=== PATIENT | male | born 1975 | race Caucasian/White ===

== ENCOUNTER 2018-02-20 10:32 | Emergency (ER) | payer BC, OTHER ==
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
[2018-02-20] MEDS ORDERED: XYLOCAINE 2% HCL 20 ML MDV ONE (10:44)
[2018-02-20] MEDS ORDERED: XYLOCAINE 2% HCL 20 ML MDV IJ ONE (10:46)
[2018-02-20] MEDS ORDERED: Norco 10/325 MG Tablet PO ONE (10:59)
[2018-02-20] MEDS ORDERED: Norco 10/325 MG Tablet ONE (11:11)
[2018-02-20 11:41] VITALS: O2SAT 98
[2018-02-20 11:46] VITALS: BP 147/74; PULSE 86
--- NOTE | 2018-02-23 16:32 | XRAY ---
Indication: Laceration. Comparison: None 3 views of the right hand obtained. No bony, articular, or soft tissue abnormalities.
== END 2018-02-20 11:50 | disposition home or self-care (01) ==
LOC: ED 10:32
PROC: 0HQFXZZ Repair Right Hand Skin, External Approach (ICD-10-PCS; principal; 2018-02-20)
PROC: 0H9FXZZ Drainage of Right Hand Skin, External Approach (ICD-10-PCS; 2018-02-20)
DX: S61.011A Laceration without foreign body of right thumb without damage to nail, initial encounter (principal); S61.210A Laceration without foreign body of right index finger without damage to nail, initial encounter; W22.8XXA Striking against or struck by other objects, initial encounter; Y93.9 Activity, unspecified
CPT/HCPCS: 10140; 12001; 73130; 96372; 99284; A9270-GY

== ENCOUNTER 2018-03-06 11:12 | Emergency (ER) | payer OTHER ==
[2018-03-06 11:22] VITALS: BP 142/85; PULSE 80; O2SAT 100
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
== END 2018-03-06 12:25 | disposition home or self-care (01) ==
LOC: ED 11:12
DX: Z48.02 Encounter for removal of sutures (principal)
CPT/HCPCS: 99283

== ENCOUNTER 2018-06-05 14:19 | Emergency (ER) | payer MEDICAID, OTHER ==
[2018-06-05] MEDS ORDERED: Sodium Chloride 0.9% 1000 ML 1,000 ML IV STA ×2 (14:42→15:58)
[2018-06-05] MEDS ORDERED: BENADRYL 50 MG/ML IV ONE (14:42)
[2018-06-05] MEDS ORDERED: Phenergan 25 MG INJ IM ONE (14:42)
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
[2018-06-05] MEDS ORDERED: Phenergan 25 MG INJ ONE (14:56)
[2018-06-05] MEDS ORDERED: BENADRYL 50 MG/ML ONE (14:56)
[2018-06-05] MEDS ORDERED: Sodium Chloride 0.9% 1000 ML 1,000 ML ONE ×2 (14:57→16:14)
[2018-06-05 15:14] LABS: Hematocrit 45.1 % (42-50); Mean Cell Volume 102.3 fl (78-100); Mean Corpuscular Hgb Concent. 33.3 g/dl (32-36); Mean Platelet Volume 9.8 fl (6-9.5); Platelet Count 147 K/mm3 (150-450); Red Blood Count 4.41 M/mm3 (4.1-5.6); Red Cell Distribution Width 12.7 % (11.5-14.0); White Blood Count 13.1 K/mm3 (4.0-10.5)
[2018-06-05 15:16] LABS: Appearance CLEAR (CLEAR); Bilirubin NEGATIVE (NEGATIVE); Blood NEGATIVE Ery/ul (0-5); Glucose NEGATIVE (NEGATIVE); Ketones NEGATIVE (NEGATIVE); Leukocyte Esterase NEGATIVE (NEGATIVE); Mucus SLIGHT /HPF (NEGATIVE); Nitrite NEGATIVE (NEGATIVE); Protein,Urine Dip NEGATIVE (Negative); Specific Gravity 1.024 (1.005-1.025); Urobilinogen 2 mg/dL (0-1)
[2018-06-05 15:18] LABS: Bacteria NONE SEEN /HPF (NEGATIVE); RBC NONE SEEN /HPF (0-2); WBC NONE SEEN /HPF (0-5)
[2018-06-05 15:26] LABS: ALBUMIN 3.5 g/dL (3.5-5.0); ALKALINE PHOSPHATASE 65 U/L (38-126); AMYLASE 74 U/L (30-110); ANION GAP 10.9 MEQ/L (5-15); BLOOD UREA NITROGEN 20 mg/dL (9-20); CHLORIDE 109 mmol/L (98-107); Calcium 7.9 mg/dL (8.4-10.2); Carbon Dioxide 23 mmol/L (22-30); Creatinine 1 0.72 mg/dL (0.66-1.25); Glucose 101 mg/dL (74-106); LIPASE 79 U/L (23-300); Potassium 4.3 mmol/L (3.5-5.1); SGOT/AST 56 U/L (17-59); SGPT/ALT 81 U/L (0-50); SODIUM 138 mmol/L (137-145); Total Protein 6.1 g/dL (6.3-8.2)
[2018-06-05 15:30] LABS: Barbiturate,Urine NEGATIVE (NEGATIVE); Benzodiazepine,Urine NEGATIVE (NEGATIVE); Cocaine,Urine NEGATIVE (NEGATIVE); Methadone,Urine NEGATIVE (NEGATIVE); Opiate,Urine NEGATIVE (NEGATIVE); PCP,Urine NEGATIVE (NEGATIVE); THC,Urine NEGATIVE (NEGATIVE)
[2018-06-05 15:32] LABS: BAND 5 % (0.0-2.0); Eosinophil 1 % (0.00-3.0); Lymphocytes 9 % (24-44); Monocyte 3 % (0.0-12.0); Neutrophils 82 % (36.-66.); Total Cells Counted 100
[2018-06-05 15:33] LABS: Platelet Estimate NORMAL (NORMAL)
[2018-06-05 15:39] LABS: Granulocyte Absolute (ANC) 11.4 (1.4-6.9)
[2018-06-05 15:40] LABS: SALICYLATE 1.4 mg/dL (2-20)
[2018-06-05 15:46] LABS: ACETAMINOPHEN < 10 ug/ml (10-30)
[2018-06-05 15:53] LABS: Amphetamine,Urine POSITIVE (NEGATIVE)
[2018-06-05 16:38] VITALS: O2SAT 99
[2018-06-05] MEDS ORDERED: NORCO 5/325 MG PO ONE ×2 (17:11→17:16)
[2018-06-05] MEDS ORDERED: NORCO 5/325 MG ONE (17:23)
[2018-06-05 17:34] VITALS: BP 138/95; PULSE 90
--- NOTE | 2018-06-05 19:44 | XRAY ---
Indication: Abdominal pain Multiple contiguous axial images obtained through the abdomen and pelvis using 80 cc Isovue 370 contrast only. Comparison: None Lung bases demonstrates minimal dependent atelectasis. No infiltrate or effusion. Heart is not enlarged. Stomach is distended with food/fluid. Noncontrasted stomach and bowel loops appear nonobstructed. Mild diffuse fluid distended small bowel loops with wall thickening favoring enteritis. Normal ileocecal junction and appendix. No free fluid/air. 5 mm right mid renal cortical cyst. Remaining liver, gallbladder, pancreas, spleen, adrenal glands, kidneys, ureters, bladder, and aorta appear unremarkable. No pathologic retroperitoneal lymphadenopathy. Osseous structures intact. Impression: 1. Mild diffuse fluid distended small bowel loops with wall thickening favoring enteritis. 2. Right renal cysts. 3. Remaining CT abdomen/pelvis with contrast exam is negative. CTDI 11.57
== END 2018-06-05 17:34 | disposition home or self-care (01) ==
LOC: ED 14:19
DX: K52.9 Noninfective gastroenteritis and colitis, unspecified (principal); F15.10 Other stimulant abuse, uncomplicated; R10.84 Generalized abdominal pain; F32.9 Major depressive disorder, single episode, unspecified; G89.4 Chronic pain syndrome
CPT/HCPCS: 36415; 74177; 80053; 80307; 81001; 82150; 83690; 85025; 96360; 96372; 96374; 99284; G0481; J1200; J2550; A9270-GY; G0480

== ENCOUNTER 2018-08-02 14:25 | Emergency (ER) | payer MEDICAID | END 2018-08-02 14:30 | disposition left against medical advice (07) | LOC: ED 14:25 | DX: Z53.9 Procedure and treatment not carried out, unspecified reason (principal) ==